=== PATIENT | female | born 1940 | race African-American/Black ===

== ENCOUNTER 2016-08-15 05:20 | Inpatient (IN) | payer OTHER, MEDICARE ==
[~2016-08-15] VITALS: Ht 167.6 cm; Wt 105.2 kg
[~2016-08-15 05:20] MED LIST: ALTACE5 M2 PO; ATORVASTATIN CA40 M1 PO; COLACE100 M1 PO; COUMADIN5 M2 PO; DILAUDID2 M1 PO; HYDROCHLOROTHIA25 M1 PO; LEVOXYL PO; METOPROLOL TART25 M1 PO; MIRALAX17 G1 PO; MS CONTIN15 M2 PO; NEXIUM40 M1 PO; OMNARIS12.5 GM NASB; PROAIR HFA8.5 GM INH; SYNTHROID125 MCG PO; ULTRAM50 M1 PO
[2016-08-15] MEDS ORDERED: LEVOXYL125 MCG PO (14:41)
--- NOTE | 2016-08-15 14:45 | Admission Core Measures ---
Admission Meds I reviewed the following Meds: Current Medications Sig/Emily Start time Last Medication Dose Stop Time Status Admin Acetaminophen 975 MG ONCE 08/15 0000 NR (Tylenol) 08/15 2358 Albuterol Sulfate 2 PUF DAILY NEEDED PRN 08/15 1445 UNVr (Ventolin) Atorvastatin Calcium 40 MG DAILY 08/16 1000 UNVr (Lipitor) Cefazolin Sodium 2,000 MG ONCE 08/15 0000 NR (Kefzol-Ancef Inj) 08/15 2358 Hydrochlorothiazide 25 MG BID 08/15 2199 UNVr (Hydrodiuril) Levothyroxine Sodium 0.125 MG DAILY AC 08/16 699 UNVr (Synthroid) Lisinopril 20 MG DAILY 08/16 1000 AC (Prinivil) Metoprolol Tartrate 25 MG BID 08/15 2199 AC (Lopressor) Omeprazole 40 MG DAILY AC 08/16 699 AC (Prilosec) Oxycodone HCl 10 MG ONCE 08/15 0000 AC (Roxicodone) 08/15 2358 Ropivacaine 500 ML ONCE ONE 08/15 0830 AC (NAROPIN) 08/17 1029 ON-Q Ball 1 BAG Acute Coronary Syndrome Inclusion Criteria ACS Diagnosis No Inpatient Core Measures LDL Reminder: If No, please order W/I first 24hr of stay Congestive Heart Failure Inclusion Criteria CHF Diagnosis No Cerebrovascular accident Inclusion Criteria CVA/TIA Diagnosis No Inpatient Core Measures Bedside Swallow Eval Reminder: If BSE failed, place ST order Antithrombotic Reminder: Order Antithrombotic Medication by end of day 2 Antithrombotic Reminder: Document Reason Antithrombotic Not ordered by end of day 2 AFIB/Flutter Reminder: If Present, add to problem list AFIB/Flutter Reminder: Order Anticoag Medication for pts with AFIB/Flutter Atherosclerosis Reminder: If Present, add to problem list LDL Reminder: If No, please order W/I first 24hr of stay PT Order Reminder: If No, please order Venous thromboembolism Inpatient Core Measures VTE Risk Factors: Age > 40, [facility] prophylaxis d/t No contraindications No VTE Pharm Prophylaxis d/t No contraindications Inclusion Criteria - Per Current guidelines, there needs to be overlap - treatment for the first 5 days of Warfarin therapy. - Parenteral Anticoagulation (IV or SC) needs to be - given along with Warfarin therapy. VTE Diagnosis No VTE Type NONE VTE Confirmed by (Test) NONE Problem List As ranked by this Provider includes Assessment & Plan 1. Unilateral primary osteoarthritis, right knee HOME MEDS Home Med List Albuterol Sulfate (Proair Hfa) 8.5 GM HFA.AER.AD 2 PUF INH PRN SOB (Reported) Atorvastatin Calcium 40 MG TABLET 1 TAB PO DAILY CHOLESTEROL (Reported) Ciclesonide (Omnaris) 12.5 GM SPRAY.PUMP 2 SPRAY NASB AD NASAL (Reported) Esomeprazole (Nexium) 40 MG CAPSULE.DR 1 CAP PO DAILY REFLUX (Reported) Levothyroxine Sodium (Levoxyl) 125 MCG TABLET 1 TAB PO DAILY AC HYPOTHYROID ( Reported) [LEVOXYL] 125 MCG TAB 1 TAB PO DAILY HYPOTHYROID (Reported) Metoprolol Tartrate 25 MG TABLET 1 TAB PO BID BP (Reported) Ramipril (Altace) 5 MG CAPSULE 1 TAB PO DAILY HEART HEALTH (Reported)
[2016-08-15] MEDS ORDERED: DILAUDID2 M1 PO (15:00)
[2016-08-15] MEDS ORDERED: MIRALAX17 G1 PO (15:00)
[2016-08-15] MEDS ORDERED: COLACE100 M1 PO (15:00)
[2016-08-15] MEDS ORDERED: ASPIRIN EC325 M2 PO (15:00)
[2016-08-15] MEDS ORDERED: COUMADIN5 M2 PO (15:02)
--- NOTE | 2016-08-15 15:07 | Patient Discharge Instructions ---
Discharge Instructions General Discharge Information You were seen/treated for: RIGHT KNEE PAIN You had these procedures: RIGHT TOTAL KNEE REPLACEMENT Watch for these problems: INCREASING PAIN DESPITE THE USE OF PAIN MEDICATION, REDNESS, WARMTH, SWELLING. DRAINIAGE OF ANY TYPE FROM INCISION. INABILITY TO BEAR WEIGHT ON RIGHT LEG. FEVER GREATER THAN 101.5 DEGREES. Do not soak the wound: Yes No bath, but you may shower: Yes Special Instructions: WOUND CARE: KEEP WOUND CLEAN AND DRY. YOUR HOME CARE NURSE WILL CHANGE YOUR DRESSING ON THE SECOND DAY AFTER YOUR SURGERY. DAILY DRY DRESSING CHANGES RECOMMENDED AFTER THAT. NO OINTMENTS OF ANY TYPE ON INCISION. BLOOD THINNER: YOU WILL BE TAKING 325 MG OF ASPIRIN TWICE DAILY FOR ONE WEEK. THIS IS IN ADDITION TO YOUR COUMADIN. THIS IS IMPORTANT IT HELPS PROTECT YOU FROM DEVELOPING A BLOOD CLOT UNTIL YOUR INR BECOMES THERAPEUTIC WITH THE COUMPDIN. PLEASE TAKE WITH FOOD. PLEASE CONTINUE TO TAKE YOUR NEXIUM TO HELP PROTECT YOUR STOMACH LINING. BOWEL REGIMEN: PAIN MEDICATION CAN OFTEN CAUSE CONSTIPATION. IT IS VERY IMPORTANT THAT YOU TAKE A STOOL SOFTENER AND A LAXATIVE TO ENSURE REGULAR BOWEL MOVEMENTS WHILE ON PAIN MEDICATION. Diet Continue normal diet: Yes Recommended Diet: Heart Healthy Additional DIET Information: ADVANCE TOLERATED Activity Full Activity/No Limits: No Activity Self Limited: Yes Pounds, do NOT lift more than: 10 Additional ACTIVITY Info: WEIGHT BEAR TOLERATED ON RIGHT LEG Acute Coronary Syndrome Inclusion Criteria At DC or during hospital stay patient has or had the following: ACS DIAGNOSIS No Discharge Core Measures Meds if any: Prescribed or Continued at Discharge Meds if any: NOT Prescribed or Continued at Discharge Congestive Heart Failure Inclusion Criteria At DC or during hospital stay patient has or had the following: CHF DIAGNOSIS No Discharge Core Measures Meds if any: Prescribed or Continued at Discharge Meds if any: NOT Prescribed or Continued at Discharge Cerebrovascular accident Inclusion Criteria At DC or during hospital stay patient has or had the following: CVA/TIA Diagnosis No Discharge Core Measures Meds if any: Prescribed or Continued at Discharge Meds if any: NOT Prescribed or Continued at Discharge Venous thromboembolism Inclusion Criteria VTE Diagnosis No VTE Type NONE VTE Confirmed by (Test) NONE Discharge Core Measures - Per Current guidelines, there needs to be overlap - treatment for the first 5 days of Warfarin therapy. - If discharged on Warfarin prior to 5 days of - overlap therapy, the patient will need to be - assessed for post discharge needs including - *Post discharge parental anticoagulation - *Warfarin and/or parental anticoagulation education - *Follow up date to check INR post discharge At least 5 days overlap therapy as Inpatient No Meds if any: Prescribed or Continued at Discharge Note: Overlap Therapy is Warfarin and Anticoagulant Meds if any: NOT Prescribed or Continued at Discharge
--- NOTE | 2016-08-15 15:13 | Surgical Discharge Summary ---
Visit Information Visit Dates Admission Date: 08/15/16 Discharge Date: 08/18/16 History of Present Illness Chief Complaint: RIGHT KNEE PAIN Medical History Neurological: NONE EENT: sinusitis Cardiovascular: hypertension Respiratory: NONE Gastrointestinal: GERD Hepatic: NONE Renal: NONE Musculoskeletal: degen joint disease, osteoarthritis Psychiatric: NONE Endocrine: hypothyroidism Blood Disorders: DVT Cancer(s): breast cancer NON PROFIT JOB TITLES/Reproductive: NONE History of MRSA: No History of VRE: No History of CDIFF: No Isolation History: Standard Pneumonia Vaccine: 09/10/09 Surgical History Pertinent Surgical History: knee replacement (B), N Psychosocial History Who Do You Live With? Patient/Self Services at Home: None What is Your Primary Language? Danish Review of Systems: SEE H&P Hospital Course Course Attending Physician: PHILLIP CALDERON MD Primary Care Physician: AMBROSE ALFORD MD Hospital Course: YORDY WAS ADMITTED TO THE HOSPITAL ON 08/15/2016 FOR AN ELECTIVE RIGHT TOTAL KNEE REPLACEMENT. SHE TOLERATED THE PROCEDURE WELL. SHE WAS TRANSFERRED TO A GENERAL SURGICAL FLOOR. HER DIET WAS ADVANCED AND TOLERATED. HER PAIN WAS WELL CONTROLLED. HER VITAL SIGNS WERE STABLE AND WITHIN NORMAL LIMITS. SHE VOIDED SPONTANEOUSLY. SHE WAS EVALUATED AND TREATED BY PHYSICAL THERAPY. SHE WAS DEEMED APPROPRIATE FOR DISCHARGE. Complications: Patient had mild postoperative hyponatremia, sodium dropped to 128, she states that she normally eats fairly salty food, potato chips and pretzels and has been on a heart healthy diet here which is likely causing her hyponatremia. Upon review of her previous records she has also had mild hyponatremia in the past as well. She is asymptomatic. I recommend increasing salt in her diet and having her sodium rechecked in the next 2-3 days at nursing facility. She has been on Coumadin for DVT prophylaxis, INR 1.4, she will continue her aspirin bridge until the INR is therapeutic. She is stable for discharge home on postop day 3 Allergies: Coded Allergies: Penicillins (as a child 01/03/16) shellfish derived (throat closes 01/03/16) Disposition Summary Disposition Principal Diagnosis: RIGHT KNEE UNILATERAL PRIMARY OSTEOARTHRITIS Additional Diagnosis: NONE Discharge Disposition: SNF Discharge Instructions General Discharge Information Code Status: Full Code Patient's Diet: Regular diet, add salt if needed until hyponatremia resolves Patient's Activity: WBAT ON RIGHT LEG Follow-Up Instructions/Appts: FOLLOW UP WITH DR. MINOTTI IN 6 WEEKS FROM DATE OF SURGERY Daily INR checks until Coumadin is therapeutic Postop day 3 patient's sodium was 128, recommend regular diet with added salt as needed and recheck her sodium in 2-3 days Medications at Discharge Discharge Medications: Continue taking these medications: Ciclesonide (Omnaris) 12.5 GM SPRAY.PUMP 2 [place] Both sides of nose As Directed Comments: Last Taken: Time:NOT GIVEN Atorvastatin Calcium (Atorvastatin Calcium) 40 MG TABLET 1 Tablet ORAL DAILY Comments: Last Taken:01/07/16 Time: 1632 Esomeprazole (Nexium) 40 MG CAPSULE.DR 1 Capsule ORAL DAILY Comments: Last Taken:01/07/16 Time:0641 Metoprolol Tartrate (Metoprolol Tartrate) 25 MG TABLET 1 Tablet ORAL TWICE DAILY Comments: Last Taken:01/06/19 Time:1122 Albuterol Sulfate (Proair Hfa) 8.5 GM HFA.AER.AD 2 Puff Inhale through mouth as needed for SOB Comments: Last Taken: Time: NOT GIVEN Ramipril (Altace) 5 MG CAPSULE 1 Tablet ORAL DAILY Comments: Last Taken: Time:NOT GIVEN Hydrochlorothiazide (Hydrochlorothiazide) 25 MG TABLET Tablet ORAL TWICE DAILY Comments: Last Taken:01/07/16 Time:1122 Levothyroxine Sodium (Levoxyl) 125 MCG TABLET 1 Tablet ORAL DAILY BEFORE BREAKFAST Qty = 30 Start taking the following new medications: Aspirin (Ecotrin*) 325 MG TABLET.DR 1 Tablet ORAL TWICE DAILY Qty = 11 No Refills Instructions: TO BE TAKEN TWICE DAILY UNTIL ONE WEEK POST OP, LAST DOSE Saturday08/22/16 10PM Docusate Sodium (Colace) 100 MG CAPSULE 1 Capsule ORAL TWICE DAILY Qty = 14 No Refills Instructions: DISCONTINUE USE IF YOU DEVELOP LOOSE STOOL OR DIARRHEA Hydromorphone HCl (Dilaudid) 2 MG TABLET 1-2 Tablet ORAL EVERY 4-6 HOURS as needed for PAIN Qty = 36 No Refills Polyethylene Glycol 3350 (Miralax) 17 GRAM POWD.PACK 1 Packet ORAL DAILY Qty = 7 No Refills Instructions: dissolve in water, DISCONTINUE USE IF YOU DEVELOP LOOSE STOOL OR DIARRHEA Warfarin Sodium (Coumadin) 5 MG TABLET 1 Tablet ORAL DAILY Qty = 30 No Refills Instructions: DOSE MAY CHANGE DAILY, PLEASE AWAIT SPECIFIC INSTRUCTIONS PRIOR TO TAKING
--- NOTE | 2016-08-15 16:07 | Operative Report ---
Operative/Inv Procedure Report Surgery Date: 08/15/16 Name of Procedure: Right total knee replacement Pre-Operative Diagnosis: Primary right knee DJD Post-Operative Diagnosis: Same Estimated Blood Loss: 50ml to 100ml Surgeon/Can Handler: KVNG FISHER,PHILLIP Mitchell Anesthesia: general endotracheal tube Operative/Procedure Note Note: Description of Procedure: The patient was taken to the operating room and positively identified. After induction of general anesthesia and administration of appropriate pre-operative antibiotics, the patient was positioned supine on the operating room table and all bony prominences were well padded. A well-padded pneumatic tourniquet was placed on the right upper thigh. After performing a surgical timeout, the right lower extremity was prepped and draped in the usual sterile fashion. After exsanguination with Esmarch the tourniquet was inflated to 250mm of mercury. A standard medial parapatellar approach was made to the knee. This was carried down through skin and subcutaneous tissue to the level of the fascia. Meticulous hemostasis was maintained with Bovie electrocautery. The extensor mechanism and patellar retinaculum were opened sharply and the patella was everted. The infrapatellar fat was resected in order to improve exposure. Osteophytes were trimmed from the patella and femoral condyles and the patella was re-everted and tucked laterally. A medial release was performed and the cruciate ligaments were resected. The tibia was then subluxed anteriorly. Utilizing the appropriate extra-medullary guide, the proximal tibia was trimmed perpendicular to the long axis of the tibial shaft. Attention was then turned to the femur. After opening the medullary canal, the distal femoral cut was made in 6 degrees of valgus utilizing the appropriate intra-medullary guide. The extension gap was checked and found to be appropriate. The femur was then sized and the remainder of the femoral cuts were made with a size 5 4-in-1 femoral cutting guide. The flexion gap was checked and found to be symmetric and appropriate. The knee was then trialed with a size 5 femoral component, a size 4 tibial component and a size 13 mm polyethylene insert. The patella was trimmed to accept an A 35 patella. This yielded excellent range of motion, stability and patellar tracking. All trial components were removed and the knee was copiously irrigated with sterile saline. All components were cemented into place with Garland Simplex cement. All the components were of the Garland Triathlon knee system of the above stated sizes. The knee was again irrigated after cementation. The extensor mechanism and patellar retinaculum were repaired using interrupted #1 vicryl suture. The skin was re-approximated with 2-0 vicryl and closed with ingrid. A sterile dressing was applied, the tourniquet was deflated, the patient was awakened and taken to the recovery room in satisfactory condition.
[2016-08-15 18:25] VITALS: BP 138/70
[2016-08-15 20:37] VITALS: BP 124/70
--- NOTE | 2016-08-15 21:53 | PN- Orthopedic ---
Subjective Subjective: poc s/p right tka sitting up in bed eating dinner no major complaints denies cp, sob, no n+v with diet Objective Vital Signs and I&Os Vital Signs Date Time Temp Pulse Resp B/P Pulse O2 O2 Flow FiO2 Ox Delivery Rate 08/15 2036 97.4 72 20 124/70 96 Nasal Cannula 08/15 1853 96 Nasal 2.0L Cannula Physical Exam: cv; rrr lungs: clear abd: soft, +bs ext: warm, distal cms intact drsg dry onq i place jacinto: clear urine Assessment/Plan Assessment/Plan ortho stable plan coumadin for dvt prophylaxis d/c foely in am oob with pt in am home d/c planning Core Measures/Miscellaneous Venous Thromboembolism VTE Risk Factors: Age > 40, Obesity, Surgery VTE Contraindications: No Contraindications VTE Diagnosis: No VTE Type: NONE VTE Confirmed by (Test): NONE Beta Olesya Is Beta Olesya a Home Med? Yes Antibiotics Is Patient on Antibiotics? Yes If Yes: prophylaxis
[2016-08-15 22:45] VITALS: BP 126/70
[2016-08-16 02:00] VITALS: BP 120/62
[2016-08-16 06:00] VITALS: BP 106/62
--- NOTE | 2016-08-16 07:50 | NUR ---
PT GIVEN 2MG PO DILAUDID @ 0600 AM BY PREVIOUS RN, PT STILL C/O PAIN 10/20 ADMINISTERED 2MG PO. WILL CONTINUE TO MONITOR.
[2016-08-16 08:24] LABS: PT 11.9 SEC (9.4-12.5)
[2016-08-16 08:29] LABS: ABSOLUTE BASOPHIL COUNT 0 /CUMM (0.0-0.2); ABSOLUTE EOSINOPHIL COUNT 0.1 /CUMM (0.0-0.7); ABSOLUTE GRANULOCYTE CT 5.7 /CUMM (1.4-6.5); ABSOLUTE LYMPH COUNT 1.2 /CUMM (1.2-3.4); ABSOLUTE MONOCYTE COUNT 0.6 /CUMM (0.10-0.60); BASOPHIL % 0.5 % (0.0-2.0); EOSINOPHIL % 0.9 % (0-5); GRANULOCYTE % 75.1 % (42.2-75.2); HEMATOCRIT 31.9 % (37-47); MEAN CORPUSCULAR HGB CONC 33.9 G/DL (33.0-37.0); MEAN CORPUSCULAR VOLUME 91.5 FL (81.0-99.0); MEAN PLATELET VOLUME 8.6 FL (7.4-10.4); PLATELET COUNT 166 /CUMM (130-400); RBC DISTRIBUTION WIDTH 13.1 % (11.5-14.5); RED BLOOD CELL CT 3.48 /CUMM (4.20-5.40); WHITE BLOOD CELL COUNT 7.5 /CUMM (4.8-10.8)
--- NOTE | 2016-08-16 08:40 | NUR ---
PT CONTINUE TO C/O PAIN AND DISCOMFORT AFTER PO DILAUDID ADMINISTERED, INCREASED ONC-Q PUMP TO 12ML/HR. WILL CONTINUE TO MONITOR.
--- NOTE | 2016-08-16 10:01 | PN- Orthopedic ---
Subjective Subjective: Postop day 1 status post right total knee arthroplasty. Complaining of moderate to severe anterior right knee pain. On Q in place, just increased by nurse. Patient has a good appetite. She needed to be straight cath this morning, no bowel movements yet. She has not yet been out of bed. She denies any chest pain fever nausea or vomiting Objective Vital Signs and I&Os Vital Signs Date Time Temp Pulse Resp B/P Pulse O2 O2 Flow FiO2 Ox Delivery Rate 08/16 0829 69 160/62 08/16 0829 69 106/62 08/16 06 98.0 69 20 106/62 97 Nasal 2.0L Cannula 08/16 0200 98.0 64 20 120/62 97 Nasal 2.0L Cannula 08/15 2245 97.9 81 20 126/70 97 Nasal Cannula 08/15 2213 97.9 81 20 126/70 08/15 2037 97.4 72 20 124/70 96 Nasal Cannula 08/15 1853 96 Nasal 2.0L Cannula 08/15 1825 97.8 81 18 138/70 96 Nasal 2.0L Cannula Intake & Output 08/16 1600 08/16 0800 08/16 0000 / 1600 08/15 0800 / 0000 Intake Total 720 830 Output Total 450 140 Balance 270 690 Intake, IV 600 350 Intake, Oral 120 480 Output, Urine 450 140 Patient 232 lb Weight Physical Exam: Well-developed well-nourished no apparent distress. HEENT: Atraumatic, extraocular motion intact Neck: Supple, no lymphadenopathy Respiratory: No respiratory distress Extremities: No edema RIGHT lower extremity dressing in place, Range of motion is 0-[address] ALPS in place Neurovascularly intact distally Bilateral calves are supple, nontender. Neuro: Alert and oriented x3 Psych: Mood affect normal, normal memory normal judgment. Skin: Warm and dry, no rash on exposed skin Results Last 48 Hours of Labs: Laboratory Tests 08/16 0650 Chemistry Sodium (137 - 145 mmol/L) 129 L Potassium (3.5 - 5.1 mmol/L) 3.2 L Chloride (98 - 107 mmol/L) 93 L Carbon Dioxide (22 - 30 mmol/L) 30 Anion Gap (5 - 16) 5 BUN (7 - 17 mg/dL) 20 H Creatinine (0.5 - 1.0 mg/dL) 0.9 Estimated GFR (>60 ml/min) > 60 BUN/Creatinine Ratio (7 - 25 %) 22.2 Coagulation PT (9.4 - 12.5 SEC) 11.9 INR (0.90 - 1.19) 1.13 Hematology CBC w Diff NO MAN DIFF REQ WBC (4.8 - 10.8 /CUMM) 7.5 RBC (4.20 - 5.40 /CUMM) 3.48 L Hgb (12.0 - 16.0 G/DL) 10.8 L Hct (37 - 47 %) 31.9 L MCV (81.0 - 99.0 FL) 91.5 MCH (27.0 - 31.0 PG) 31.0 RDW (11.5 - 14.5 %) 13.1 Plt Count (130 - 400 /CUMM) 166 MPV (7.4 - 10.4 FL) 8.6 Gran % (42.2 - 75.2 %) 75.1 Lymphocytes % (20.5 - 51.1 %) 15.6 L Monocytes % (1.7 - 9.3 %) 7.9 Eosinophils % (0 - 5 %) 0.9 Basophils % (0.0 - 2.0 %) 0.5 Absolute Granulocytes (1.4 - 6.5 /CUMM) 5.7 Absolute Lymphocytes (1.2 - 3.4 /CUMM) 1.2 Absolute Monocytes (0.10 - 0.60 /CUMM) 0.6 Absolute Eosinophils (0.0 - 0.7 /CUMM) 0.1 Absolute Basophils (0.0 - 0.2 /CUMM) 0 PUBS MCHC (33.0 - 37.0 G/DL) 33.9 Assessment/Plan Assessment/Plan Postop day 1 status post right total knee arthroplasty -Postoperative pain, add MS Contin 15 twice a day -Out of bed with physical therapy -Weightbearing as tolerated, increase range of motion of right knee -Dressing change tomorrow -Continue on-Q -GI and DVT prophylaxis - ALPS IN PLACE -Coumadin 5MG tonight, INR 1.13, continue aspirin. Recheck INR in a.m. -Hypertension, controlled -H&H stable -Plan for short-term rehabilitation Hyponatremia, sodium 129, patient on regular diet, will recheck tomorrow Hypokalemia, potassium 3.2, add 20 mEq by mouth potassium twice a day and recheck tomorrow Core Measures/Miscellaneous Venous Thromboembolism VTE Risk Factors: Age > 40, Obesity, Surgery VTE Contraindications: No Contraindications VTE Diagnosis: No VTE Type: NONE VTE Confirmed by (Test): NONE Beta Olesya Is Beta Olesya a Home Med? Yes Antibiotics Is Patient on Antibiotics? Yes If Yes: prophylaxis
--- NOTE | 2016-08-16 13:21 | NUR ---
PT ATTEMPTED AMBULATION, PT APPEARED PALE AND CONFUSED, PT BROUGHT BACK TO CHAIR, PT JESSIE CHECKED BP 90/58, THIS RN RECHECKED BP AFTER LEGS ELEVATED @ 126/64. WILL CONTINUE TO MONITOR.
[2016-08-16 14:11] VITALS: BP 118/80
[2016-08-16 21:00] VITALS: BP 150/70
[2016-08-17 07:03] VITALS: BP 120/60
--- NOTE | 2016-08-17 08:05 | PN- Orthopedic ---
Subjective Subjective: pod#2 s/p right tka no complaints this am deneis cp, sob, no n+v with diet ambulaitng with pt no bm Objective Vital Signs and I&Os Vital Signs Date Time Temp Pulse Resp B/P Pulse O2 O2 Flow FiO2 Ox Delivery Rate / 0703 97.9 75 20 120/60 98 Nasal 1.0L Cannula / 0000 97 Nasal 1.0L Cannula / 2219 99.0 / 2212 99.8 / 2117 89 150/70 04/ 2100 99.7 89 20 150/70 97 Nasal 1.0L Cannula / 1600 Nasal 1.0L Cannula 08/16 1539 Nasal 2.0L Cannula 08/16 1411 97.5 73 20 118/80 95 Nasal 2.0L Cannula 08/16 0829 69 160/62 08/16 0829 69 106/62 Intake & Output / 1600 08/17 0800 04/07 0000 / 1600 08/16 0800 / 0000 Intake Total 130 1200 720 830 Output Total 1200 450 140 Balance -1070 1200 270 690 Intake, IV 10 600 600 350 Intake, Oral 120 600 120 480 Number 0 Bowel Movements Output, Urine 1200 450 140 Patient 232 lb Weight Physical Exam: cv: rrr lungs: clear abd: soft, +bs\ ext: drsg changed, wound c/d/i distal cms intact no calf tenderness bilat Results Last 48 Hours of Labs: Laboratory Tests 08/17 08/16 0635 0650 Chemistry Sodium (137 - 145 mmol/L) Pending 129 L Potassium (3.5 - 5.1 mmol/L) Pending 3.2 L Chloride (98 - 107 mmol/L) Pending 93 L Carbon Dioxide (22 - 30 mmol/L) Pending 30 Anion Gap (5 - 16) Pending 5 BUN (7 - 17 mg/dL) Pending 20 H Creatinine (0.5 - 1.0 mg/dL) Pending 0.9 Estimated GFR (>60 ml/min) > 60 BUN/Creatinine Ratio (7 - 25 %) Pending 22.2 Coagulation PT (9.4 - 12.5 SEC) Pending 11.9 INR (0.90 - 1.19) Pending 1.13 Hematology CBC w Diff NO MAN DIFF REQ WBC (4.8 - 10.8 /CUMM) 7.5 RBC (4.20 - 5.40 /CUMM) 3.48 L Hgb (12.0 - 16.0 G/DL) 10.8 L Hct (37 - 47 %) 31.9 L MCV (81.0 - 99.0 FL) 91.5 MCH (27.0 - 31.0 PG) 31.0 RDW (11.5 - 14.5 %) 13.1 Plt Count (130 - 400 /CUMM) 166 MPV (7.4 - 10.4 FL) 8.6 Gran % (42.2 - 75.2 %) 75.1 Lymphocytes % (20.5 - 51.1 %) 15.6 L Monocytes % (1.7 - 9.3 %) 7.9 Eosinophils % (0 - 5 %) 0.9 Basophils % (0.0 - 2.0 %) 0.5 Absolute Granulocytes (1.4 - 6.5 /CUMM) 5.7 Absolute Lymphocytes (1.2 - 3.4 /CUMM) 1.2 Absolute Monocytes (0.10 - 0.60 /CUMM) 0.6 Absolute Eosinophils (0.0 - 0.7 /CUMM) 0.1 Absolute Basophils (0.0 - 0.2 /CUMM) 0 PUBS MCHC (33.0 - 37.0 G/DL) 33.9 Assessment/Plan Assessment/Plan ortho stable plan f/u am labs titrate coumadin fro dvt prophylaxis bowel regime oob with pt/ambulate-stairs snf in am Core Measures/Miscellaneous Venous Thromboembolism VTE Risk Factors: Age > 40, Obesity, Surgery VTE Contraindications: No Contraindications VTE Diagnosis: No VTE Type: NONE VTE Confirmed by (Test): NONE Beta Olesya Is Beta Olesya a Home Med? Yes Antibiotics Is Patient on Antibiotics? Yes If Yes: prophylaxis
[2016-08-17 08:36] LABS: PT 15.4 SEC (9.4-12.5)
[2016-08-17 14:11] VITALS: BP 130/76
[2016-08-17 22:00] VITALS: BP 120/70
[2016-08-18 06:30] VITALS: BP 112/68
[2016-08-18 08:08] LABS: ABSOLUTE BASOPHIL COUNT 0 /CUMM (0.0-0.2); ABSOLUTE EOSINOPHIL COUNT 0.1 /CUMM (0.0-0.7); ABSOLUTE LYMPH COUNT 1.2 /CUMM (1.2-3.4); ABSOLUTE MONOCYTE COUNT 0.7 /CUMM (0.10-0.60); BASOPHIL % 0.2 % (0.0-2.0); EOSINOPHIL % 0.8 % (0-5); GRANULOCYTE % 80.3 % (42.2-75.2); HEMATOCRIT 29.7 % (37-47); MEAN CORPUSCULAR HGB 30.8 PG (27.0-31.0); MEAN CORPUSCULAR HGB CONC 33.7 G/DL (33.0-37.0); MEAN CORPUSCULAR VOLUME 91.5 FL (81.0-99.0); MEAN PLATELET VOLUME 8.6 FL (7.4-10.4); PLATELET COUNT 186 /CUMM (130-400); RBC DISTRIBUTION WIDTH 13.2 % (11.5-14.5); RED BLOOD CELL CT 3.24 /CUMM (4.20-5.40)
[2016-08-18 08:30] LABS: PT 15.4 SEC (9.4-12.5)
--- NOTE | 2016-08-18 10:19 | PN- Orthopedic ---
Subjective Subjective: Patient feeling well today, she has pain as expected in the right anterior knee. She has been out of bed. She is passing gas. No bowel movement yet. She is voiding without difficulty. She has no fever or flulike illness. No confusion or nausea no vomiting. Objective Vital Signs and I&Os Vital Signs Date Time Temp Pulse Resp B/P Pulse O2 O2 Flow FiO2 Ox Delivery Rate 08/18 0948 85 116/66 08/18 0947 85 116/66 08/18 0630 99.2 83 18 112/68 93 Room Air 08/17 2200 99.0 91 18 120/70 94 Room Air 08/17 2052 91 120/70 08/17 1411 98.2 79 20 130/76 98 Room Air 08/17 1142 Nasal 2.0L Cannula 08/17 1138 Nasal 2.0L Cannula Intake & Output 08/18 0000 08/17 1600 08/17 0000 Intake Total 200 600 600 130 Output Total 575 456 2852 Balance 200 50 400 -1070 Intake, IV 0 10 Intake, Oral 200 600 600 120 Number 0 0 Bowel Movements Output, Urine 537 328 1929 Physical Exam: Well-developed well-nourished no apparent distress. HEENT: Atraumatic, extraocular motion intact Neck: Supple, no lymphadenopathy Respiratory: No respiratory distress Extremities: Trace bilateral lower extremity edema RIGHT lower extremity dressing in place, Incision line is clean dry and intact without drainage. No signs of infection. Mild joint effusion Range of motion is 5-60. Compression stocking Neurovascularly intact distally Bilateral calves are supple, nontender. Neuro: Alert and oriented x3 Psych: Mood affect normal, normal memory normal judgment. Skin: Warm and dry, no rash on exposed skin Results Last 48 Hours of Labs: Laboratory Tests 08/18 08/18 08/17 0718 0700 0635 Chemistry Sodium (137 - 145 mmol/L) 128 L 129 L Potassium (3.5 - 5.1 mmol/L) 4.1 3.6 Chloride (98 - 107 mmol/L) 88 L 90 L Carbon Dioxide (22 - 30 mmol/L) 30 31 H Anion Gap (5 - 16) 10 8 BUN (7 - 17 mg/dL) 19 H 12 Creatinine (0.5 - 1.0 mg/dL) 1.0 0.9 Estimated GFR (>60 ml/min) 54 L > 60 BUN/Creatinine Ratio (7 - 25 %) 19.0 13.3 Coagulation PT (9.4 - 12.5 SEC) 15.4 H 15.4 H INR (0.90 - 1.19) 1.47 H 1.47 H Hematology CBC w Diff NO MAN DIFF REQ WBC (4.8 - 10.8 /CUMM) 10.0 RBC (4.20 - 5.40 /CUMM) 3.24 L Hgb (12.0 - 16.0 G/DL) 10.0 L Hct (37 - 47 %) 29.7 L MCV (81.0 - 99.0 FL) 91.5 MCH (27.0 - 31.0 PG) 30.8 RDW (11.5 - 14.5 %) 13.2 Plt Count (130 - 400 /CUMM) 186 MPV (7.4 - 10.4 FL) 8.6 Gran % (42.2 - 75.2 %) 80.3 H Lymphocytes % (20.5 - 51.1 %) 11.7 L Monocytes % (1.7 - 9.3 %) 7.0 Eosinophils % (0 - 5 %) 0.8 Basophils % (0.0 - 2.0 %) 0.2 Absolute Granulocytes (1.4 - 6.5 /CUMM) 8.0 H Absolute Lymphocytes (1.2 - 3.4 /CUMM) 1.2 Absolute Monocytes (0.10 - 0.60 /CUMM) 0.7 H Absolute Eosinophils (0.0 - 0.7 /CUMM) 0.1 Absolute Basophils (0.0 - 0.2 /CUMM) 0 PUBS MCHC (33.0 - 37.0 G/DL) 33.7 Assessment/Plan Assessment/Plan Postop day 3 status post right total knee arthroplasty -stable for [facility] -Mild hyponatremia, asymptomatic. Patient has history of mild hyponatremia as seen on her previous lab records here and she is asymptomatic. Recommend continuing with more of a normal diet, (has been on heart healthy here). Recommend repeating sodium in the next 2-3 days at [facility]. -INR subtherapeutic, continue usual dose of Coumadin at 5 mg and aspirin bridge until INR is therapeutic Core Measures/Miscellaneous Venous Thromboembolism VTE Risk Factors: Age > 40, Obesity, Surgery VTE Contraindications: No Contraindications VTE Diagnosis: No VTE Type: NONE VTE Confirmed by (Test): NONE Beta Olesya Is Beta Olesya a Home Med? Yes Antibiotics Is Patient on Antibiotics? Yes If Yes: prophylaxis
--- NOTE | 2016-08-18 12:29 | NUR ---
THIS RN ASSUMED CARE AT 1100. PT A&OX3, ROOM AIR, ASSIST X1 RW. D/C ORDER IN BUT PT STILL HAS NOT HAD BOWEL MOVEMENT. PT WISHES TO EAT LUNCH THEN SEE IF SHE IS ABLE TO GO. IF NOT, SHE AGREES TO SUPPOSITORY. R KNEE DSG PRESENT, C/D/I. BLE PULSES PRESENT AND PT ENDORSES SENSATION AND DENIES NUMBNESS/TINGLING. KNEE +1 NON PITTING EDEMA, ICE APPLIED. WILL MONITOR.
--- NOTE | 2016-08-18 13:38 | NUR ---
PT CONTINUES TO REFUSE SUPPOSITORY AT THIS TIME. SAYS SHE WILL TRY A CUP OF TEA THEN WILL AGREE TO SUPPOSITORY AFTER THAT. WILL MONITOR.
[2016-08-18 14:00] VITALS: BP 114/62
--- NOTE | 2016-08-18 14:46 | NUR ---
PT HAD BM, CALLED KASH FROM CASE MANAGEMENT TO NOTIFY.
[2016-08-18 15:04] VITALS: BP 114/62
== END 2016-08-18 15:35 | DRG 470 ==
LOC: ENRESERVDT → ENRESERVTM → ERHI 05:20 → UNDOADMIN 05:20 → SDA 07:40 → 2NA 07:40 → ENPENDDIS 07:40 → 2NA 18:09
PROVIDERS: Nurse Practitioner; Physician Assistant Surgical; ADMIT Orthopaedic Surgery
PROC: 0SRC0J9 Replacement of Right Knee Joint with Synthetic Substitute, Cemented, Open Approach (ICD-10-PCS; principal; 2016-08-15)
DX: M17.11 Unilateral primary osteoarthritis, right knee (principal); E87.1 Hypo-osmolality and hyponatremia; I10 Essential (primary) hypertension; E66.01 Morbid (severe) obesity due to excess calories; Z68.37 Body mass index [BMI] 37.0-37.9, adult; E87.6 Hypokalemia; J45.909 Unspecified asthma, uncomplicated; K21.9 Gastro-esophageal reflux disease without esophagitis; Z85.3 Personal history of malignant neoplasm of breast
CPT/HCPCS: 2NASP; 36415; 82436; 87086; 88305; 97110-GO; 97116-GO; 97161-GP; 97530-GO; C1713; J0690; J2405; J2550; J2795; J3490; J7042